=== PATIENT | male | born 1980 | race Two or more races ===

== ENCOUNTER 2020-02-05 00:08 | Emergency (ER) | payer OTHER ==
[~2020-02-05] VITALS: Ht 175.3 cm; Wt 97.0 kg
[2020-02-05 08:00] VITALS: BP 126/69
== END 2020-02-05 10:23 | disposition home or self-care (01) ==
LOC: ER 01:16
DX: S71.112D Laceration without foreign body, left thigh, subsequent encounter (principal); Z98.890 Other specified postprocedural states; Z59.0 Homelessness; X58.XXXD Exposure to other specified factors, subsequent encounter
CPT/HCPCS: 99283